=== PATIENT | female | born 1950 | race Caucasian/White ===

== ENCOUNTER 2018-06-22 16:26 | Inpatient (IN) | payer SELFPAY ==
[~2018-06-22] VITALS: Ht 160 cm; Wt 79.5 kg
[~2018-06-22 16:26] MED LIST: ASPI-1182 PO; HYDR25TA PO; LISI-661 PO; LOVA20 PO; METF-960 PO
[2018-06-22 16:39] LABS: GLUCOSE,POINT OF CARE 269 MG/DL (70-110)
[2018-06-22] MEDS ORDERED: LISI-662 PO (16:43)
[2018-06-22] MEDS ORDERED: CLINDAMYCIN 600 MG/D5% WATER 50 ML IV ONE (17:00)
[2018-06-22] MEDS ORDERED: SODIUM CHLORIDE 0.9% 1,000 ML IV ONE ×2 (17:00→20:30)
[2018-06-22] MEDS ORDERED: KETOROLAC TROMETHAMINE 30 MG/ML VIAL IVP ONE (17:15)
[2018-06-22] MEDS ORDERED: IOVERSOL 320 MG/ML 50 ML VIAL ONE (17:20)
[2018-06-22] MEDS ORDERED: SODIUM CHLORIDE 0.9% 100 ML ONE (17:20)
[2018-06-22 17:57] LABS: BASOPHILS % (AUTO) 0.4 % (0.0-2.0); EOSINOPHILS % (AUTO) 0.6 % (1.0-6.0); HEMATOCRIT 44.7 % (36-46); HEMOGLOBIN 15.1 g/dL (12.0-16.0); LYMPHOCYTES # (AUTO) 2.3 K/uL (1.0-4.8); LYMPHOCYTES % (AUTO) 13.2 % (22.0-44.0); MEAN CORPUSCULAR HEMOGLOBIN 28.5 pg (26.0-34.0); MEAN CORPUSCULAR HGB CONC 33.8 G/dL (31.0-37.0); MEAN CORPUSCULAR VOLUME 84 fL (80-100); MONOCYTES # (AUTO) 1.5 K/uL (0.1-1.0); MONOCYTES % (AUTO) 8.6 % (2.0-9.0); NEUTROPHILS # (AUTO) 13.2 K/uL (1.8-7.7); NEUTROPHILS % (AUTO) 77.2 % (40.0-70.0); PLATELET COUNT (AUTO) 322 K/uL (150-450); RED CELL DISTRIBUTION WIDTH 13.7 % (11.5-14.5)
[2018-06-22 18:06] LABS: CALCIUM, TOTAL 9.7 mg/dL (8.8-10.5); CREATININE 1.14 mg/dL (0.60-1.30); POTASSIUM 3.1 mmol/L (3.5-5.1)
[2018-06-22 18:12] LABS: BILIRUBIN,TOTAL 0.5 mg/dL (0.1-1.0)
[2018-06-22 18:54] LABS: GLUCOSE,POINT OF CARE 186 MG/DL (70-110)
[2018-06-22] MEDS ORDERED: POTASSIUM CHLORIDE 20 MEQ ER TABLET PO ONE (19:15)
[2018-06-22] MEDS ORDERED: ONDANSETRON HCL 4 MG/2 ML VIAL IVP PRN (19:30)
[2018-06-22] MEDS ORDERED: MORPHINE SULFATE 2 MG/ML SYRINGE IVP PRN (19:30)
[2018-06-22] MEDS ORDERED: ACETAMINOPHEN 325 MG TABLET PO PRN ×2 (19:30→20:30)
[2018-06-22] MEDS ORDERED: 0.9% SODIUM CHLORIDE 10 ML SYRINGE IVP PRN (19:30)
[2018-06-22] MEDS ORDERED: POTASSIUM CHL 10 MEQ/WATER 50 ML IV PRN (20:30)
[2018-06-22] MEDS ORDERED: DEXTROSE 50%-WATER 25 GM/50 ML SYRINGE IVP PRN (20:30)
[2018-06-22] MEDS ORDERED: MAGNESIUM HYDROXIDE SUSPENSION 30 ML UDCUP PO PRN (20:30)
[2018-06-22] MEDS ORDERED: POTASSIUM CHLORIDE 20 MEQ ER TABLET PO PRN (20:30)
[2018-06-22 21:03] LABS: GLUCOSE,POINT OF CARE 179 MG/DL (70-110)
[2018-06-22 21:20] VITALS: BP_SYST 160; BP_SYST 188; BP_DIAS 83; BP_DIAS 85
[2018-06-22] MEDS: OxyCODONE HCL/ACETAMINOPHEN 5-325 MG TABLET PO PRN (21:30)
[2018-06-22] MEDS: FAMOTIDINE 20 MG TABLET PO SCH (21:31)
[2018-06-22] MEDS: DOCUSATE SODIUM 100 MG CAPSULE PO SCH (21:31)
[2018-06-22 22:08] LABS: GLUCOMETER DEV NAME(LOC) 5N.2; GLUCOSE,POINT OF CARE 169 MG/DL (70-110)
[2018-06-22] MEDS ORDERED: PNEUMOCOCCAL VACCINE POLYVALENT 0.5 ML VIAL [PPSV23] IM ONE (22:45)
[2018-06-22 23:42] VITALS: BP 149/72
[2018-06-22] MEDS: HEPARIN SODIUM,PORCINE 5,000 UNITS/ML VIAL SQ SCH (23:55)
[2018-06-22] MEDS: MORPHINE SULFATE 2 MG/ML SYRINGE IVP PRN (23:55)
[2018-06-23] MEDS: CLINDAMYCIN 600 MG/D5% WATER 50 ML IV SCH ×3 (01:35→17:09)
[2018-06-23] MEDS: OxyCODONE HCL/ACETAMINOPHEN 5-325 MG TABLET PO PRN ×5 (03:53→21:01)
[2018-06-23 04:09] VITALS: BP 149/72
[2018-06-23 05:28] LABS: BASOPHILS % (AUTO) 0.4 % (0.0-2.0); EOSINOPHILS % (AUTO) 0.7 % (1.0-6.0); HEMATOCRIT 40.3 % (36-46); HEMOGLOBIN 13.4 g/dL (12.0-16.0); LYMPHOCYTES # (AUTO) 1.4 K/uL (1.0-4.8); LYMPHOCYTES % (AUTO) 9.9 % (22.0-44.0); MEAN CORPUSCULAR HEMOGLOBIN 28.2 pg (26.0-34.0); MEAN CORPUSCULAR HGB CONC 33.4 G/dL (31.0-37.0); MEAN CORPUSCULAR VOLUME 85 fL (80-100); MONOCYTES # (AUTO) 1.3 K/uL (0.1-1.0); MONOCYTES % (AUTO) 9.5 % (2.0-9.0); NEUTROPHILS % (AUTO) 79.5 % (40.0-70.0); PLATELET COUNT (AUTO) 276 K/uL (150-450); RED BLOOD CELL COUNT(AUTO) 4.76 MIL/uL (4.00-5.20); RED CELL DISTRIBUTION WIDTH 13.9 % (11.5-14.5)
[2018-06-23 05:49] LABS: GLUCOMETER DEV NAME(LOC) 5N.2; GLUCOSE,POINT OF CARE 181 MG/DL (70-110)
[2018-06-23] MEDS: INSULIN LISPRO 100 UNITS/ML SQ PRN ×4 (06:02→21:29)
[2018-06-23 06:08] LABS: ALANINE AMINOTRANSFERASE 56 U/L (12-78); ALBUMIN 2.9 g/dL (3.4-5.0); ALKALINE PHOSPHATASE 104 U/L (46-116); ANION GAP 11 mmol/L (8-16); ASPARTATE AMINOTRANSFERASE 61 U/L (15-37); BILIRUBIN,TOTAL 0.6 mg/dL (0.1-1.0); CARBON DIOXIDE 26 mmol/L (22-29); CHLORIDE 101 mmol/L (98-107); CREATININE 0.89 mg/dL (0.60-1.30); GLOMERULAR FILTR. RATE CALC > 60 mL/min (>60); GLUCOSE,RANDOM 186 mg/dL (70-110); POTASSIUM 3.3 mmol/L (3.5-5.1); SODIUM SERUM 138 mmol/L (136-145); TOTAL PROTEIN, SERUM 7.6 g/dL (6.4-8.2); UREA NITROGEN, BLOOD 13 mg/dL (7-18)
[2018-06-23 07:23] VITALS: BP 141/75
[2018-06-23] MEDS: ASPIRIN 81 MG CHEWABLE TABLET PO SCH (08:40)
[2018-06-23] MEDS: FAMOTIDINE 20 MG TABLET PO SCH ×2 (08:40→20:22)
[2018-06-23] MEDS: DOCUSATE SODIUM 100 MG CAPSULE PO SCH ×2 (08:40→20:22)
[2018-06-23] MEDS: HEPARIN SODIUM,PORCINE 5,000 UNITS/ML VIAL SQ SCH ×2 (08:41→15:21)
[2018-06-23 11:25] VITALS: BP 153/82
[2018-06-23] MEDS: MORPHINE SULFATE 2 MG/ML SYRINGE IVP PRN ×2 (11:35→15:21)
[2018-06-23 11:49] LABS: GLUCOMETER DEV NAME(LOC) 5N.2; GLUCOSE,POINT OF CARE 201 MG/DL (70-110)
[2018-06-23 17:18] LABS: GLUCOMETER DEV NAME(LOC) 5N.2; GLUCOSE,POINT OF CARE 157 MG/DL (70-110)
[2018-06-23 20:13] VITALS: BP 150/88
[2018-06-23 23:19] LABS: GLUCOMETER DEV NAME(LOC) 5N.2; GLUCOSE,POINT OF CARE 156 MG/DL (70-110)
[2018-06-24] VITALS (7 sets, daily range): BP systolic 139–178; BP diastolic 76–95
[2018-06-24] MEDS: HEPARIN SODIUM,PORCINE 5,000 UNITS/ML VIAL SQ SCH ×3 (00:22→15:44)
[2018-06-24] MEDS: CLINDAMYCIN 600 MG/D5% WATER 50 ML IV SCH ×3 (02:00→17:34)
[2018-06-24] MEDS: OxyCODONE HCL/ACETAMINOPHEN 5-325 MG TABLET PO PRN ×4 (06:17→20:39)
[2018-06-24 06:22] LABS: BASOPHILS % (AUTO) 0.3 % (0.0-2.0); EOSINOPHILS % (AUTO) 0.5 % (1.0-6.0); HEMATOCRIT 39.1 % (36-46); LYMPHOCYTES # (AUTO) 1.4 K/uL (1.0-4.8); LYMPHOCYTES % (AUTO) 10.5 % (22.0-44.0); MEAN CORPUSCULAR HEMOGLOBIN 28.1 pg (26.0-34.0); MEAN CORPUSCULAR HGB CONC 33.2 G/dL (31.0-37.0); MEAN CORPUSCULAR VOLUME 85 fL (80-100); MONOCYTES % (AUTO) 6.9 % (2.0-9.0); NEUTROPHILS # (AUTO) 11.2 K/uL (1.8-7.7); NEUTROPHILS % (AUTO) 81.8 % (40.0-70.0); PLATELET COUNT (AUTO) 279 K/uL (150-450); RED BLOOD CELL COUNT(AUTO) 4.63 MIL/uL (4.00-5.20); RED CELL DISTRIBUTION WIDTH 13.8 % (11.5-14.5)
[2018-06-24 06:24] LABS: GLUCOMETER DEV NAME(LOC) 5S.2; GLUCOSE,POINT OF CARE 138 MG/DL (70-110)
[2018-06-24] MEDS: DOCUSATE SODIUM 100 MG CAPSULE PO SCH ×2 (08:26→20:39)
[2018-06-24] MEDS: ASPIRIN 81 MG CHEWABLE TABLET PO SCH (08:26)
[2018-06-24] MEDS: FAMOTIDINE 20 MG TABLET PO SCH ×2 (08:26→20:39)
[2018-06-24] MEDS: INSULIN LISPRO 100 UNITS/ML SQ PRN ×3 (11:56→21:17)
[2018-06-24] MEDS: MetFORMIN HCL 500 MG TABLET PO SCH (17:34)
[2018-06-24 20:11] LABS: GLUCOMETER DEV NAME(LOC) 5N.2; GLUCOSE,POINT OF CARE 149 MG/DL (70-110)
[2018-06-24 20:11] LABS: GLUCOMETER DEV NAME(LOC) 5S.2; GLUCOSE,POINT OF CARE 124 MG/DL (70-110)
[2018-06-24 21:30] LABS: GLUCOMETER DEV NAME(LOC) 5N.2; GLUCOSE,POINT OF CARE 163 MG/DL (70-110)
[2018-06-25] MEDS: HEPARIN SODIUM,PORCINE 5,000 UNITS/ML VIAL SQ SCH ×2 (00:19→08:23)
[2018-06-25 00:32] VITALS: BP 164/78
[2018-06-25] MEDS: CLINDAMYCIN 600 MG/D5% WATER 50 ML IV SCH ×2 (02:00→09:15)
[2018-06-25 04:15] VITALS: BP 153/80
[2018-06-25 06:10] LABS: BASOPHILS % (AUTO) 0.4 % (0.0-2.0); EOSINOPHILS % (AUTO) 1.3 % (1.0-6.0); HEMATOCRIT 39.7 % (36-46); HEMOGLOBIN 13.3 g/dL (12.0-16.0); LYMPHOCYTES % (AUTO) 16.6 % (22.0-44.0); MEAN CORPUSCULAR HEMOGLOBIN 28.3 pg (26.0-34.0); MEAN CORPUSCULAR HGB CONC 33.4 G/dL (31.0-37.0); MEAN CORPUSCULAR VOLUME 85 fL (80-100); MONOCYTES % (AUTO) 8.5 % (2.0-9.0); NEUTROPHILS # (AUTO) 8.8 K/uL (1.8-7.7); NEUTROPHILS % (AUTO) 73.2 % (40.0-70.0); PLATELET COUNT (AUTO) 305 K/uL (150-450); RED BLOOD CELL COUNT(AUTO) 4.68 MIL/uL (4.00-5.20); RED CELL DISTRIBUTION WIDTH 13.4 % (11.5-14.5)
[2018-06-25 06:54] LABS: GLUCOMETER DEV NAME(LOC) 5N.2; GLUCOSE,POINT OF CARE 101 MG/DL (70-110)
[2018-06-25 07:53] VITALS: BP 180/82
[2018-06-25] MEDS: FAMOTIDINE 20 MG TABLET PO SCH (08:22)
[2018-06-25] MEDS: DOCUSATE SODIUM 100 MG CAPSULE PO SCH (08:22)
[2018-06-25] MEDS: OxyCODONE HCL/ACETAMINOPHEN 5-325 MG TABLET PO PRN (08:22)
[2018-06-25] MEDS: MetFORMIN HCL 500 MG TABLET PO SCH (08:23)
[2018-06-25] MEDS: ASPIRIN 81 MG CHEWABLE TABLET PO SCH (08:23)
[2018-06-25] MEDS ORDERED: SODIUM CHLORIDE 0.9% 250 ML IV ONE (08:33)
[2018-06-25] MEDS ORDERED: CLIN300C3 PO ×2 (11:13→11:14)
[2018-06-25 11:31] VITALS: BP 160/79
[2018-06-25] MEDS: INSULIN LISPRO 100 UNITS/ML SQ PRN (12:19)
[2018-06-25 18:44] LABS: GLUCOMETER DEV NAME(LOC) 5N.2; GLUCOSE,POINT OF CARE 142 MG/DL (70-110)
== END 2018-06-25 13:00 | disposition home or self-care (01) | DRG 603 ==
LOC: EMS 16:27 → 5S 20:00 → 5N 21:05
PROVIDERS: ADMIT Internal Medicine; ATTEND Internal Medicine
DX: L03.211 Cellulitis of face (principal); R65.10 Systemic inflammatory response syndrome (SIRS) of non-infectious origin without acute organ dysfunction; E66.9 Obesity, unspecified; Z68.31 Body mass index [BMI] 31.0-31.9, adult; I10 Essential (primary) hypertension; E78.00 Pure hypercholesterolemia, unspecified; E87.6 Hypokalemia; E11.65 Type 2 diabetes mellitus with hyperglycemia; Z83.3 Family history of diabetes mellitus; Z71.3 Dietary counseling and surveillance; Z28.21 Immunization not carried out because of patient refusal
CPT/HCPCS: 70487; 83605; 84132; 90686; 90732; 96365; G0378; J1644; J1885; J2270; J3490; J7030; J7050